=== PATIENT | female | born 1950 | race Hispanic/Latino ===

== ENCOUNTER 2018-11-13 09:11 | Day surgery (SDC) | payer MEDICARE ==
[~2018-11-13] VITALS: Ht 160 cm; Wt 73.6 kg
[~2018-11-13 09:11] MED LIST: SODIUM CHLORIDE 0.9% 1000ML 1,000 ML IV ONE
[2018-11-13 10:57] VITALS: BP 142/48
[2018-11-13] MEDS ORDERED: [UNRECOGNIZED DRUG - OTHER] PO (11:10)
[2018-11-13] MEDS ORDERED: CHOL500045 PO (11:10)
[2018-11-13] MEDS ORDERED: LISI40TA4 PO (11:10)
[2018-11-13] MEDS ORDERED: METO25TA6 PO (11:10)
[2018-11-13] MEDS ORDERED: ATOR40TA71 PO (11:10)
[2018-11-13] MEDS ORDERED: NITR0.4T50 SL (11:10)
[2018-11-13] MEDS ORDERED: METF500T7 PO (11:10)
[2018-11-13] MEDS ORDERED: PROPOFOL 10 MG/ML 20ML VIAL IV ONE ×2 (11:49)
[2018-11-13 12:02] VITALS: BP 122/47
[2018-11-13 12:08] VITALS: BP 119/35
[2018-11-13 12:12] VITALS: BP 130/40
[2018-11-13 12:18] VITALS: BP 154/73
== END 2018-11-13 12:40 | disposition home or self-care (01) ==
LOC: ENDO 09:11 → DAH 09:11 → ENDO 12:40
PROVIDERS: ATTEND Internal Medicine
DX: K31.89 Other diseases of stomach and duodenum (principal); K83.8 Other specified diseases of biliary tract; Z68.30 Body mass index [BMI] 30.0-30.9, adult; Z98.890 Other specified postprocedural states; Z95.5 Presence of coronary angioplasty implant and graft; Z95.1 Presence of aortocoronary bypass graft; E78.5 Hyperlipidemia, unspecified; I10 Essential (primary) hypertension; I25.10 Atherosclerotic heart disease of native coronary artery without angina pectoris; E11.9 Type 2 diabetes mellitus without complications; M81.0 Age-related osteoporosis without current pathological fracture; Z79.899 Other long term (current) drug therapy
CPT/HCPCS: 43259; 82948 ×2; 93005; A4606; J2704; J7030; 43231

== ENCOUNTER → 2024-11-16 | Outpatient (CLI) | payer OTHER, MEDICARE ==
[~2024-11-16] MED LIST changes: +ATOR40TA71 PO; +CHOL500045 PO; +LISI40TA9 PO; +METF-910 PO; +METO25TA6 PO; +NITR0.4T50 SL; -SODIUM CHLORIDE 0.9% 1000ML 1,000 ML IV ONE; +[UNRECOGNIZED DRUG - OTHER] PO
--- NOTE | 2024-11-16 15:24 | HMCSR ---
APPROVED REPORT Bilateral Lower Extremity Venous Study for Venous Competence., DVT. Indications Venous insufficiency Vein Imaging CFV (R): Normal flow, augmentation and compression. No evidence of DVT. 6.5mm 1006ms of reflux. SFJ (R): Normal flow, augmentation and compression. No evidence of DVT. FEM (R): Normal flow, augmentation and compression. No evidence of DVT. POP (R): Normal flow, augmentation and compression. No evidence of DVT. DFV (R): Normal flow, augmentation and compression. No evidence of DVT. PTV (R): Normal flow, augmentation and compression. No evidence of DVT. Peroneals (R): Normal flow, augmentation and compression. No evidence of DVT. CFV (L): Normal flow, augmentation and compression. No evidence of DVT. 11.5mm 1178ms of reflux SFJ (L): Normal flow, augmentation and compression. No evidence of DVT. FEM (L): Normal flow, augmentation and compression. No evidence of DVT. POP (L): Normal flow, augmentation and compression. No evidence of DVT. DFV (L): Normal flow, augmentation and compression. No evidence of DVT. PTV (L): Normal flow, augmentation and compression. No evidence of DVT. Peroneals (L): Normal flow, augmentation and compression. No evidence of DVT. Technologist Impression Deep Veins of bilateral lower extremities appear patent and compressible without thrombus. There is deep vein reflux in RCFV and LCFV. superficial venous insufficiency seen in RGSV and LGSV (residual) RGSV Junction 4.9mm 583ms thigh 3.4mm 0.0ms knee 2.8mm 0.0ms calf 1.2mm 544ms RSSV Prox 1.0mm 0.0ms Mid 1.7mm 0.0ms LGSV Junction 3.9mm 600ms thigh (Not seen) knee ( Not seen) calf 1.9mm 0.0ms (residual) LSSV Prox 1.3mm 0.0ms Mid 1.0mm 0.0ms Conclusion There is deep vein reflux in RCFV and LCFV. superficial venous insufficiency seen in RGSV and LGSV (residual) No DVT Consider formal venography with intravascular ultrasound if clinically indicated Conclusion There is deep vein reflux in RCFV and LCFV. superficial venous insufficiency seen in RGSV and LGSV (residual) No DVT Consider formal venography with intravascular ultrasound if clinically indicated
== END | disposition home or self-care (01) ==
LOC: SHCH 10:55
PROVIDERS: ATTEND Internal Medicine Cardiovascular Disease
DX: I87.2 Venous insufficiency (chronic) (peripheral) (principal); I73.9 Peripheral vascular disease, unspecified
CPT/HCPCS: 93970